=== PATIENT | female | born 1970 | race African-American/Black ===

== ENCOUNTER 2024-10-24 13:58 | Inpatient (IN) | payer OTHER ==
[2024-10-24 15:00] VITALS: BMI 29.5
[2024-10-24] MEDS ORDERED: BISMUTH SUBSALICYLATE 524 MG/30 ML PO PRN (15:34)
[2024-10-24] MEDS ORDERED: POLYETHYLENE GLYCOL (HEALTHYLAX) 3350 17 GM PACKET PO PRN (15:34)
[2024-10-24] MEDS ORDERED: DICYCLOMINE HCL 10 MG CAPSULE PO PRN (15:34)
[2024-10-24] MEDS ORDERED: LORazepam 1 MG TABLET PO PRN (15:34)
[2024-10-24] MEDS ORDERED: MAG HYDROX/AL HYDROX/SIMETH 30 ML UNIT-DOSE CUP PO PRN (15:34)
[2024-10-24] MEDS ORDERED: LOPERAMIDE HCL 2 MG CAPSULE PO PRN (15:34)
[2024-10-24] MEDS ORDERED: ONDANSETRON *ODT* 4 MG TABLET SL PRN (15:34)
[2024-10-24] MEDS ORDERED: BENZOCAINE/MENTHOL (CHLORASEPTIC ) LOZENGE MM PRN (15:34)
[2024-10-24] MEDS ORDERED: hydrOXYzine PAMOATE 25 MG CAPSULE (FP) PO PRN (15:34)
[2024-10-24] MEDS ORDERED: IBUPROFEN 600 MG TABLET (FP) PO PRN (15:34)
[2024-10-24] MEDS ORDERED: BENZONATATE 200 MG CAPSULE PO PRN (15:34)
[2024-10-24] MEDS ORDERED: NALOXONE (NARCAN) HCL 4 MG/0.1 ML SPRAY NS PRN (15:34)
[2024-10-24] MEDS ORDERED: IBUPROFEN 400 MG TABLET (FP) PO PRN (15:34)
[2024-10-24] MEDS ORDERED: MAGNESIUM HYDROX 2400MG/30ML ORAL SUSPENSION 30 ML CUP PO PRN (15:34)
[2024-10-24] MEDS ORDERED: ACETAMINOPHEN 325 MG TABLET (FP) PO PRN (15:34)
[2024-10-24] MEDS: PRENATAL VITAMINS W/ FOLIC ACID TABLET (FP) PO SCH (19:59)
[2024-10-24] MEDS: THIAMINE 100 MG TABLET PO SCH (23:47)
[2024-10-24] MEDS: MELATONIN 5 MG TABLETS PO SCH (23:47)
[2024-10-24] MEDS: LORazepam 2 MG TABLET PO SCH (23:48)
[2024-10-25] MEDS ORDERED: methaDONE HCL 10 MG TABLET PO ONE (09:11)
[2024-10-25] MEDS: EMTRICITABINE 200MG/TENOFOVIR 300MG PO SCH (10:28)
[2024-10-25] MEDS: DOLUTEGRAVIR SODIUM 50 MG TABLET (NON-FORMULARY) PO SCH (11:01)
[2024-10-25] MEDS: valACYclovir HCL 500 MG TABLET (FP) PO SCH (12:18)
[2024-10-25 16:01] LABS: HEMATOCRIT 38.5 % (32.4-45.2); HEMOGLOBIN 12.4 GM/dL (10.7-15.3); MCH 28.7 pg (25.7-33.7); MCHC 32.1 g/dl (32.0-36.0); MEAN CELL VOLUME 89.5 fl (80-96); MEAN PLT VOLUME 8.9 fl (7.5-11.1); PLATELET COUNT 244 10^3/uL (134-434); RBC 4.31 M/mm3 (3.60-5.2); RDW 14.9 % (11.6-15.6); WHITE BLOOD COUNT 5.7 K/mm3 (4.0-10.0)
[2024-10-25 18:27] LABS: POTASSIUM 3.7 mmol/L (3.5-5.1)
[2024-10-25 18:30] LABS: ALBUMIN 3.5 g/dl (3.4-5.0); BLOOD UREA NITROGEN 8.4 mg/dL (7-18); CALCIUM 9.6 mg/dL (8.5-10.1)
[2024-10-25 18:33] LABS: CREATININE 1.1 mg/dL (0.55-1.3)
[2024-10-25 18:34] LABS: BILIRUBIN,TOTAL 0.9 mg/dL (0.2-1)
[2024-10-25 18:35] LABS: TOT PROT 7.4 g/dl (6.4-8.2)
[2024-10-26] MEDS: LORazepam 1 MG TABLET PO SCH (05:38)
[2024-10-26] MEDS ORDERED: methaDONE HCL 10 MG TABLET PO SCH (06:00)
[2024-10-26] MEDS: METHOCARBAMOL 500 MG TABLET PO PRN (13:11)
[2024-10-26] MEDS ORDERED: hydrOXYzine PAMOATE 25 MG CAPSULE (FP) PO PRN (15:42)
[2024-10-26] MEDS: ALBUTEROL SO4 HFA INHALER IH PRN (18:01)
[2024-10-26] MEDS: guaiFENesin 600 MG TABLET.ER (FP) PO PRN (18:01)
[2024-10-26] MEDS: valACYclovir HCL 500 MG TABLET (FP) PO SCH ×2 (23:08→23:51)
[2024-10-27] MEDS ORDERED: LORazepam 0.5 MG TABLET PO PRN
[2024-10-27] MEDS: LORazepam 0.5 MG TABLET PO SCH (05:51)
[2024-10-28] MEDS: LORazepam 0.5 MG TABLET PO ONE (06:00)
[2024-10-29 06:31] VITALS: RESP 16
[2024-10-29 09:26] VITALS: TEMP 97.6
[2024-10-29] MEDS: CLOTRIMAZOLE 1% CREAM TP SCH (09:41)
[2024-10-29 13:47] VITALS: BP 112/79; PULSE 72
== END 2024-10-29 14:50 | disposition other institution (70) | DRG 773 ==
LOC: YASAS 13:58 → Y6N 18:47
PROVIDERS: ADMIT Allergy & Immunology; ATTEND Surgery
PROC: HZ2ZZZZ Detoxification Services for Substance Abuse Treatment (ICD-10-PCS; principal; 2024-10-24)
DX: F13.230 Sedative, hypnotic or anxiolytic dependence with withdrawal, uncomplicated (principal); F11.20 Opioid dependence, uncomplicated; F14.20 Cocaine dependence, uncomplicated; F12.20 Cannabis dependence, uncomplicated; F19.282 Other psychoactive substance dependence with psychoactive substance-induced sleep disorder; F19.280 Other psychoactive substance dependence with psychoactive substance-induced anxiety disorder; F39 Unspecified mood [affective] disorder; F43.10 Post-traumatic stress disorder, unspecified; Z21 Asymptomatic human immunodeficiency virus [HIV] infection status; J45.20 Mild intermittent asthma, uncomplicated; B00.9 Herpesviral infection, unspecified; G89.29 Other chronic pain; M54.50 Low back pain, unspecified; Z79.899 Other long term (current) drug therapy
CPT/HCPCS: 36415; 71046-TC-FY; 80053; 80305; 80307; 85027; 86780; 87811; 93005; 93010

== ENCOUNTER 2024-10-29 14:45 | Inpatient (IN) | payer OTHER ==
[~2024-10-29 14:45] MED LIST: ACETAMINOPHEN 325 MG TABLET (FP) PO PRN; BENZONATATE 200 MG CAPSULE PO PRN; IBUPROFEN 400 MG TABLET (FP) PO PRN; LOPERAMIDE HCL 2 MG CAPSULE PO PRN; MAG HYDROX/AL HYDROX/SIMETH 30 ML UNIT-DOSE CUP PO PRN; MAGNESIUM HYDROX 2400MG/30ML ORAL SUSPENSION 30 ML CUP PO PRN; NALOXONE (NARCAN) HCL 4 MG/0.1 ML SPRAY NS PRN; NICOTINE POLACRILEX 2 MG GUM BUC PRN; NICOTINE POLACRILEX 2 MG LOZENGE BC PRN; POLYETHYLENE GLYCOL (HEALTHYLAX) 3350 17 GM PACKET PO PRN; guaiFENesin 600 MG TABLET.ER (FP) PO PRN
[2024-10-29] MEDS: VITAMINS A AND D TOPICAL OINTMENT TP SCH (17:43)
[2024-10-29] MEDS: ALBUTEROL SO4 HFA INHALER IH PRN (21:28)
[2024-10-29] MEDS: valACYclovir HCL 500 MG TABLET (FP) PO SCH (21:29)
[2024-10-29] MEDS: MELATONIN 5 MG TABLETS PO SCH (21:29)
[2024-10-29] MEDS: hydrOXYzine PAMOATE 25 MG CAPSULE (FP) PO PRN (21:29)
[2024-10-29] MEDS: THIAMINE 100 MG TABLET PO SCH (21:29)
[2024-10-30] MEDS ORDERED: methaDONE HCL 40 MG DISPERSABLE TABLET PO SCH (06:00)
[2024-10-30] MEDS: EMTRICITABINE 200MG/TENOFOVIR 300MG PO SCH (09:43)
[2024-10-30] MEDS: PRENATAL VITAMINS W/ FOLIC ACID TABLET (FP) PO SCH (09:43)
[2024-10-30] MEDS: DOLUTEGRAVIR SODIUM 50 MG TABLET (NON-FORMULARY) PO SCH (10:06)
[2024-10-30] MEDS: FLU VACCINE (FLULAVAL) PF 45 MCG/0.5 ML SYRINGE 2024-2025 IM ONE (12:56)
[2024-10-30] MEDS ORDERED: BENZOCAINE 20 % GEL TUBE MM PRN (16:47)
[2024-10-31] MEDS ORDERED: ACYCLOVIR TP SCH (13:00)
[2024-10-31] MEDS ORDERED: [UNRECOGNIZED DRUG - OTHER] TP SCH (13:00)
[2024-10-31] MEDS ORDERED: HYDROCORTISONE TP SCH (13:00)
[2024-10-31] MEDS: GABAPENTIN 100 MG CAPSULE PO SCH (21:57)
[2024-10-31] MEDS: CLOTRIMAZOLE 1% CREAM TP SCH (21:58)
[2024-11-03] MEDS: VITAMINS A AND D TOPICAL OINTMENT TP PRN (12:47)
[2024-11-04] MEDS: BENZOCAINE/MENTHOL (CHLORASEPTIC ) LOZENGE MM PRN (10:49)
[2024-11-05] MEDS: TRIMETHOBENZAMIDE HCL 200MG/2ML INJ IM ONE (11:35)
[2024-11-05] MEDS: IBUPROFEN 600 MG TABLET (FP) PO PRN (21:09)
[2024-11-07 07:22] VITALS: RESP 18
[2024-11-07 11:34] VITALS: BP 120/77; PULSE 71; TEMP 96.9
== END 2024-11-07 17:45 | disposition short-term general hospital (02) | DRG 772 ==
LOC: YASAS 14:45 → Y3NR 14:47 → Y5N 10-30 12:13
PROVIDERS: ADMIT Psychiatry & Neurology Pain Medicine; ATTEND Psychiatry & Neurology Pain Medicine
PROC: HZ42ZZZ Group Counseling for Substance Abuse Treatment, Cognitive-Behavioral (ICD-10-PCS; principal; 2024-10-29)
DX: F13.20 Sedative, hypnotic or anxiolytic dependence, uncomplicated (principal); F10.20 Alcohol dependence, uncomplicated; F11.20 Opioid dependence, uncomplicated; F43.10 Post-traumatic stress disorder, unspecified; Z21 Asymptomatic human immunodeficiency virus [HIV] infection status; J18.1 Lobar pneumonia, unspecified organism; J44.9 Chronic obstructive pulmonary disease, unspecified; L02.511 Cutaneous abscess of right hand; R10.13 Epigastric pain; R11.2 Nausea with vomiting, unspecified; M54.50 Low back pain, unspecified; G89.29 Other chronic pain
CPT/HCPCS: 82962; 90656; G0008

== ENCOUNTER 2024-11-07 12:01 | Inpatient (IN) | payer OTHER ==
[2024-11-07] MEDS ORDERED: ALBUTEROL SO4 2.5/IPRATROPIUM 0.5 INH SOL 3 ML VIAL.NEB. NEB ONE (13:11)
[2024-11-07] MEDS: ALBUTEROL SO4 2.5/IPRATROPIUM 0.5 INH SOL 3 ML VIAL.NEB. NEB ONE (13:44)
[2024-11-07] MEDS ORDERED: ONDANSETRON 4 MG/2 ML VIAL ONE (13:48)
[2024-11-07] MEDS ORDERED: ACETAMINOPHEN INJECTION 100 ML ONE (13:48)
[2024-11-07 13:54] LABS: BASO % 0.5 % (0-2.0); EOS % 0.4 % (0-4.5); HEMATOCRIT 37.8 % (32.4-45.2); HEMOGLOBIN 12.2 GM/dL (10.7-15.3); LYMPH % 6.9 % (8-40); MCH 28.4 pg (25.7-33.7); MCHC 32.3 g/dl (32.0-36.0); MEAN CELL VOLUME 88.1 fl (80-96); MEAN PLT VOLUME 7.8 fl (7.5-11.1); MONO % 5.8 % (3.8-10.2); NEUT % 86.4 % (42.8-82.8); PLATELET COUNT 344 10^3/uL (134-434); RBC 4.29 M/mm3 (3.60-5.2); RDW 14.7 % (11.6-15.6); WHITE BLOOD COUNT 19.9 K/mm3 (4.0-10.0)
[2024-11-07] MEDS: SODIUM CHLORIDE 0.9% 1000 ML INFUS.BAG IV ONE (13:57)
[2024-11-07 13:58] LABS: VENOUS BASE EXCESS 2.5 mmol/L (-2-2); VENOUS O2 SATURATION 75.8 % (70-80); VENOUS PCO2 42.2 mmHg (38-52); VENOUS PH 7.426 (7.310-7.410)
[2024-11-07] MEDS: ACETAMINOPHEN 1000 MG/100 ML BAG IVPB ONE (13:58)
[2024-11-07] MEDS: ONDANSETRON 4 MG/2 ML VIAL IVPUSH ONE (13:58)
[2024-11-07 14:09] LABS: CHLORIDE 102 mmol/L (98-107); SODIUM 132 mmol/L (136-145)
[2024-11-07 14:10] LABS: CALCIUM 9.2 mg/dL (8.5-10.1)
[2024-11-07 14:11] LABS: ALBUMIN 2.9 g/dl (3.4-5.0); BLOOD UREA NITROGEN 12.5 mg/dL (7-18); CO2 26 mmol/L (21-32); GLUCOSE,RANDOM 107 mg/dL (74-106); MAGNESIUM 2.4 mg/dL (1.8-2.4)
[2024-11-07 14:14] LABS: CREATININE 1.2 mg/dL (0.55-1.3); SGOT/AST 113 U/L (15-37)
[2024-11-07] MEDS ORDERED: DOXYCYCLINE HYCLATE 100 MG VIAL ONE (14:14)
[2024-11-07 14:15] LABS: ANION GAP 3 mmol/L (4-13); POTASSIUM 8.6 mmol/L (3.5-5.1); SGPT/ALT 33 U/L (13-61)
[2024-11-07 14:16] LABS: BILIRUBIN,TOTAL 0.5 mg/dL (0.2-1); TOT PROT 8.6 g/dl (6.4-8.2)
[2024-11-07 14:17] LABS: ALK PHOS 106 U/L (45-117)
[2024-11-07] MEDS: DOXYCYCLINE INJECTION 100 MG in DEXTROSE 5%-WATER 100 ML IVPB ONE (14:28)
[2024-11-07 15:05] LABS: HIV INTERPRETATION NEGATIVE (NEGATIVE)
[2024-11-07] MEDS ORDERED: KETOROLAC TROMETHAMINE 15 MG/ML VIAL ONE (15:05)
[2024-11-07] MEDS: KETOROLAC TROMETHAMINE 15 MG/ML VIAL IVPUSH ONE (15:15)
[2024-11-07 15:43] LABS: POTASSIUM 4.6 mmol/L (3.5-5.1)
[2024-11-07 15:44] LABS: CALCIUM 8.8 mg/dL (8.5-10.1)
[2024-11-07 15:48] LABS: CREATININE 1.1 mg/dL (0.55-1.3)
[2024-11-07] MEDS: VANCOMYCIN PREMIX 1.5 GM 1,500 MG/300 ML BAG IVPB SCH (20:15)
[2024-11-07] MEDS: valACYclovir HCL 500 MG TABLET (FP) PO SCH (21:56)
[2024-11-08] MEDS: CLOTRIMAZOLE 1% CREAM TP SCH (01:38)
[2024-11-08] MEDS: EMTRICITABINE 200MG/TENOFOVIR 300MG PO SCH (08:49)
[2024-11-08 09:54] LABS: BASO % 0.4 % (0-2.0); EOS % 2.1 % (0-4.5); HEMATOCRIT 35.5 % (32.4-45.2); HEMOGLOBIN 10.9 GM/dL (10.7-15.3); LYMPH % 16.2 % (8-40); MCH 27.7 pg (25.7-33.7); MCHC 30.8 g/dl (32.0-36.0); MEAN CELL VOLUME 89.8 fl (80-96); MEAN PLT VOLUME 7.9 fl (7.5-11.1); MONO % 7.9 % (3.8-10.2); NEUT % 73.4 % (42.8-82.8); PLATELET COUNT 317 10^3/uL (134-434); RBC 3.95 M/mm3 (3.60-5.2); RDW 14.7 % (11.6-15.6); WHITE BLOOD COUNT 11.5 K/mm3 (4.0-10.0)
[2024-11-08] MEDS ORDERED: methaDONE HCL 40 MG DISPERSABLE TABLET PO SCH (10:00)
[2024-11-08 10:13] LABS: POTASSIUM 4.7 mmol/L (3.5-5.1)
[2024-11-08 10:21] LABS: ALBUMIN 2.5 g/dl (3.4-5.0); MAGNESIUM 2.2 mg/dL (1.8-2.4)
[2024-11-08 10:22] LABS: BLOOD UREA NITROGEN 10.3 mg/dL (7-18)
[2024-11-08 10:24] LABS: CREATININE 0.9 mg/dL (0.55-1.3)
[2024-11-08 10:25] LABS: PHOSPHOROUS 3.1 mg/dL (2.5-4.9)
[2024-11-08 10:26] LABS: BILIRUBIN,TOTAL 0.4 mg/dL (0.2-1)
[2024-11-08 10:28] LABS: TOT PROT 6.8 g/dl (6.4-8.2)
[2024-11-08] MEDS: THIAMINE 100 MG TABLET PO SCH (10:43)
[2024-11-08] MEDS: ENOXAPARIN NA (PORCINE) 40 MG/0.4 ML DISP.SYRIN SQ SCH (10:55)
[2024-11-08] MEDS: DOLUTEGRAVIR SODIUM 50 MG TABLET (NON-FORMULARY) PO SCH (11:13)
[2024-11-09 10:49] LABS: HEMATOCRIT 39.8 % (32.4-45.2); HEMOGLOBIN 12.8 GM/dL (10.7-15.3); MCH 28.6 pg (25.7-33.7); MCHC 32.3 g/dl (32.0-36.0); MEAN CELL VOLUME 88.5 fl (80-96); MEAN PLT VOLUME 7.7 fl (7.5-11.1); PLATELET COUNT 395 10^3/uL (134-434); RBC 4.49 M/mm3 (3.60-5.2); RDW 14.8 % (11.6-15.6); WHITE BLOOD COUNT 6.2 K/mm3 (4.0-10.0)
[2024-11-09 11:17] LABS: POTASSIUM 4.9 mmol/L (3.5-5.1)
[2024-11-09 11:18] LABS: CALCIUM 9.6 mg/dL (8.5-10.1)
[2024-11-09 11:19] LABS: BLOOD UREA NITROGEN 10.2 mg/dL (7-18)
[2024-11-09 11:22] LABS: CREATININE 1.1 mg/dL (0.55-1.3)
[2024-11-09] MEDS: CEFTRIAXONE 1 G/50 ML PREMIX 50 ML IVPB SCH (19:47)
[2024-11-09] MEDS: ALBUTEROL SO4 HFA INHALER IH PRN (22:04)
[2024-11-09] MEDS: AZITHROMYCIN IVPB 500 MG/250 ML BAG IVPB SCH (22:45)
[2024-11-09] MEDS: VANCOMYCIN HCL 1,500 MG in DEXTROSE 5%-WATER - 250 ML IVPB SCH (22:46)
[2024-11-10] MEDS: SODIUM CHLORIDE 500 ML IV STA (05:59)
[2024-11-10] MEDS ORDERED: AZITHROMYCIN IVPB 250 MG in DEXTROSE 5%-WATER - 250 ML IVPB SCH (10:00)
[2024-11-10 10:50] LABS: HEMATOCRIT 36.8 % (32.4-45.2); HEMOGLOBIN 11.9 GM/dL (10.7-15.3); MCH 28.8 pg (25.7-33.7); MCHC 32.5 g/dl (32.0-36.0); MEAN CELL VOLUME 88.7 fl (80-96); MEAN PLT VOLUME 7.7 fl (7.5-11.1); PLATELET COUNT 379 10^3/uL (134-434); RBC 4.15 M/mm3 (3.60-5.2); RDW 14.4 % (11.6-15.6)
[2024-11-10] MEDS: AZITHROMYCIN IVPB 500 MG/250 ML BAG IVPB SCH (11:34)
[2024-11-10] MEDS: SODIUM CHLORIDE 0.9% 250 ML INFUS.BAG IV ONE (18:05)
[2024-11-11 10:49] LABS: HEMATOCRIT 35.8 % (32.4-45.2); MCH 29.4 pg (25.7-33.7); MCHC 33.5 g/dl (32.0-36.0); MEAN CELL VOLUME 87.7 fl (80-96); MEAN PLT VOLUME 7.1 fl (7.5-11.1); PLATELET COUNT 392 10^3/uL (134-434); RBC 4.09 M/mm3 (3.60-5.2); RDW 14.4 % (11.6-15.6); WHITE BLOOD COUNT 6.4 K/mm3 (4.0-10.0)
[2024-11-11] MEDS: CEFUROXIME AXETIL 500 MG TABLET PO SCH (12:24)
[2024-11-11 16:33] LABS: HIV INTERPRETATION NEGATIVE (NEGATIVE)
[2024-11-11 23:47] VITALS: RESP 18
[2024-11-12 09:42] LABS: HEMATOCRIT 36.3 % (32.4-45.2); HEMOGLOBIN 12.3 GM/dL (10.7-15.3); MCH 29.6 pg (25.7-33.7); MEAN CELL VOLUME 87.1 fl (80-96); MEAN PLT VOLUME 7.4 fl (7.5-11.1); PLATELET COUNT 418 10^3/uL (134-434); RBC 4.17 M/mm3 (3.60-5.2); RDW 14.9 % (11.6-15.6); WHITE BLOOD COUNT 7.4 K/mm3 (4.0-10.0)
[2024-11-12 15:21] VITALS: BP 97/60; PULSE 60; TEMP 98.3
== END 2024-11-12 15:48 | disposition home or self-care (01) | DRG 720 ==
LOC: JER 12:01 → INTOOBSV 15:06 → UNDOADMOB 15:06 → JERBED 15:06 → J5S 19:43 → OBSVTOIN 11-08 11:00
PROVIDERS: ADMIT Internal Medicine
PROC: 0X9J3ZZ Drainage of Right Hand, Percutaneous Approach (ICD-10-PCS; principal; 2024-11-07)
DX: A41.9 Sepsis, unspecified organism (principal); J18.9 Pneumonia, unspecified organism; F11.20 Opioid dependence, uncomplicated; F43.10 Post-traumatic stress disorder, unspecified; L02.511 Cutaneous abscess of right hand; F19.10 Other psychoactive substance abuse, uncomplicated
CPT/HCPCS: 0241U-QW; 36415; 71045-TC-FY; 71250-TC; 80048; 80053; 82803; 83605; 83735; 84100; 84484; 85025; 85027; 86803; 87040; 87070; 87205; 87389; 87522; 87899; 93005; 93010; 99285-25; G0378; J0131